=== PATIENT | male | born 1960 | race Caucasian/White ===

== ENCOUNTER 2024-10-08 15:23 | Outpatient (AMB) | payer BC, SELFPAY ==
--- NOTE | 2024-10-08 15:35 | HO.NEPHOV_ITS ---
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 He is not a diabetic. He has no H/O CAD, CVA, CHF, PAD, FRANKLIN, hypokalemia or hypercalcemia. He has no headache or visual disturbance. He has no orthostatic symptoms. He has no chest pain, palpitations, SOB, edema. He has no H/O drug use but has normal sodium diet. He monitors his BP at home and has been having labile blood pressure which was confirmed by RN in PCP's office. He is active and feels well. REPLACED BY [facility] Medical History (Updated 10/08/24 @ 16:02 by Chai Washburn MD) Obesity, class 1 Hyperlipidemia GE reflux Ortiz esophagus Hypertension Family History (Updated 10/08/24 @ 15:38 by Sigrid Armenta MA) Father Pancreatic cancer Social History (Updated 10/08/24 @ 15:38 by Sigrid Armenta MA) Alcohol intake: current Comment: Socially Patient Tobacco Use Status: Current someday Tobacco user Review of Systems Const All systems reviewed & are unremarkable except as noted in HPI and below Physical Exam Vital Signs: Last Vital Signs Pulse 79 10/08/24 15:42 BP 136/100 H 10/08/24 15:42 Pulse Ox 96 10/08/24 15:42 Oxygen Delivery Method Room Air 10/08/24 15:42 BMI result Body Mass Index 29.3 Const General: comfortable and no acute distress Orientation/consciousness: patient oriented x3 HEENT Head: Yes normocephalic Mouth: Normal oral and palatal mucosa present Eyes EOM: EOMs intact bilaterally Neck Neck: Yes supple Resp Auscultation: clear to auscultation bilaterally Cardio Jugular venous distension: no JVD Rate: regular rate GI Palpation (GI): Soft to palpation Auscultation: normal bowel sounds General: Yes no CVA tenderness Back/Spine/Pelvis Back: no CVA tenderness Skin General skin exam: no rashes or lesions noted Neuro General: patient oriented x3 and moves all extremities Extrem General: Yes no pedal edema Results Reviewed Nephrology Results: No Data to Display Assessment & Plan Assessment & Plan (1) Labile blood pressure: Code(s): R09.89 - Other specified symptoms and signs involving the circulatory and respiratory systems Category: Medical Plan Servando has been having labile BP for some time No H/O hypokalemia , renal dysfunction or uncontrolled thyroid disorders Low sodium diet and continued good physical activity 24 hour BPM today; May need to initiate BP medication based on data Discussed the etiologies of hypertension, investigations & management strategies Follow up given; Answered all questions Orders: Orders AMB 24 HR B/P Monitor PLACEMENT 10/08/24 R09.89 - Other specified symptoms and signs involving the circulatory and respiratory systems Coding Level of Care Code New Pt Level 4 (64170) Diagnoses Labile blood pressure R09.89
[2024-10-08 15:42] VITALS: BP 136/100; PULSE 79; O2SAT 96; BMI 29.3
== END 2024-10-08 16:18 | disposition home or self-care (01) ==
LOC: HO.HKAS 15:23
PROVIDERS: PCP Family Medicine; Visit Provider Internal Medicine Nephrology
DX: R09.89 Other specified symptoms and signs involving the circulatory and respiratory systems (principal)
CPT/HCPCS: 99204

== ENCOUNTER → 2024-10-08 15:23 | Outpatient (BNVA) | payer BC, SELFPAY | PROVIDERS: PCP Family Medicine; Visit Provider Internal Medicine Nephrology ==

== ENCOUNTER → 2024-10-09 15:30 | Outpatient (BNVA) | payer BC, SELFPAY | PROVIDERS: PCP Family Medicine; Visit Provider Internal Medicine Nephrology | DX: R09.89 Other specified symptoms and signs involving the circulatory and respiratory systems (principal) | CPT/HCPCS: 93786; 93788 ==

== ENCOUNTER 2024-10-11 10:58 | Outpatient (AMB) | payer BC, SELFPAY ==
[2024-10-11 11:23] VITALS: BP 128/80; PULSE 74; O2SAT 97; BMI 29.2
--- NOTE | 2024-10-11 11:23 | HO.NEPHOV_ITS ---
Vital Signs 10/11/24 11:23 Height 5 ft 7 in Weight 186 lb 4 oz BMI 29.2 BP 128/80 Blood Pressure Location Lt brachial Position Sitting Pulse 74 Pulse Source Pulse Oximeter Pulse Oximetry (%) 97 Oxygen Delivery Method Room Air Intake Visit Reasons: 24 Hr BP results Position Classifier Required: No Accompanied by: Self / Same As Patient Allergies No Known Allergies Allergy (Verified 10/11/24 11:35) Do you need a note to return to daycare/school/sports/work: No HPI Comments Details: Servando was seen in follow up for labile blood pressure. He is not a diabetic. He has no H/O CAD, CVA, CHF, PAD, FRANKLIN, hypokalemia or hypercalcemia. He has no headache or visual disturbance. He has no orthostatic symptoms. He has no chest pain, palpitations, SOB, edema. He has no H/O drug use but has normal sodium diet. He monitors his BP at home and has been having labile blood pressure which was confirmed by RN in PCP's office. He had a 24 hour BP monitor which showed 24 hour average of 127/86 mm of Hg with daytime average of 127/88 mm of Hg and night time average of 125/80 mm of Hg. He had spikes of high BP above goal but his average is pretty good. He is active and feels well. [facility] Medical History Obesity, class 1 Hyperlipidemia GE reflux Ortiz esophagus Hypertension Family History Father Pancreatic cancer Social History Alcohol intake: current Comment: Socially Patient Tobacco Use Status: Current someday Tobacco user Review of Systems Const All systems reviewed & are unremarkable except as noted in HPI and below Physical Exam Vital Signs: Last Vital Signs Pulse 74 10/11/24 11:23 BP 128/80 10/11/24 11:23 Pulse Ox 97 10/11/24 11:23 Oxygen Delivery Method Room Air 10/11/24 11:23 BMI result Body Mass Index 29.2 Const General: comfortable and no acute distress Orientation/consciousness: patient oriented x3 HEENT Head: Yes normocephalic Mouth: Normal oral and palatal mucosa present Eyes EOM: EOMs intact bilaterally Neck Neck: Yes supple Resp Auscultation: clear to auscultation bilaterally Cardio Jugular venous distension: no JVD Rate: regular rate GI Palpation (GI): Soft to palpation Auscultation: normal bowel sounds General: Yes no CVA tenderness Back/Spine/Pelvis Back: no CVA tenderness Skin General skin exam: no rashes or lesions noted Neuro General: patient oriented x3 and moves all extremities Extrem General: Yes no pedal edema Results Reviewed Nephrology Results: No Data to Display Assessment & Plan Assessment & Plan (1) Labile blood pressure: Code(s): R09.89 - Other specified symptoms and signs involving the circulatory and respiratory systems Category: Medical Plan Servando has been having labile BP for some time No H/O hypokalemia , renal dysfunction or uncontrolled thyroid disorders Low sodium diet and continued good physical activity He had a 24 hour BP monitor which showed 24 hour average of 127/86 mm of Hg with daytime average of 127/88 mm of Hg and night time average of 125/80 mm of Hg. He had spikes of high BP above goal but his average is pretty good. May need to initiate BP medication based on future data Discussed the etiologies of hypertension, investigations & management strategies Follow up given; Answered all questions Coding Level of Care Code Est Pt Level 4 (61058) Diagnoses Labile blood pressure R09.89
--- OUTSIDE RECORDS SUMMARY | 2024-10-11 12:05 | XMS_ITS | Clinical Summary ---
Author Organization [facility] [address] [facility] Address [address] [place] [address] Phone Care Team Providers Care Brand Manager Name Role Phone Donnie Mendez DO Primary Care Provider [phone] Medications omeprazole (PriLOSEC) [address] capsuleIndicatio ns:Gastroesophag eal reflux disease without esophagitis Take 1 capsule (20 mg total) by mouth 1 (one) time each day. 30 each 05/31/2024 05/31/20 Active Social History Tobacco Use Types Packs/Day Years Used Date Smoking Tobacco: Never Assessed Sex and Gender Information Value Date Recorded Sex Assigned at Not on file Legal Sex Male 4:38 PM EDT Gender Identity Not on file Sexual Orientation Not on file Plan of Treatment Health Maintenance Due Date Last Done Comments DTaP,Tdap,and Td Vaccines (1 - Tdap) 1979 Pneumococcal Vaccine: 50+ Ye ars (1 of 1 - PCV) 2010 Zoster Vaccines (1 of 2) 2010 COVID-19 Vaccine ( - 2023-2 5 season) 2024 Cholesterol Screening (Lipid Panel) 04/07/2024 Colorectal Cancer Screening: Colonoscopy 04/07/2024 Depression Screening 04/07/2024 HIV Screening 04/07/2024 Hepatitis C Screening 04/07/2024 Social Influencers of Health Screening 04/07/2024 Influenza Vaccine (Season Ended) 2025 RSV Immunization Adult Patie nts (1 - 1-dose 75+ series) 2035 HIB Vaccines Aged Out No longer eligi ble based on patient's age to complete this topic HPV Vaccines Aged Out No longer eligi ble based on patient's age to complete this topic Hepatitis A Vaccines Aged Out No long er eligible based on patient's age to complete this topic Hepatitis B Vaccines Aged Out No long er eligible based on patient's age to complete this topic IPV Vaccines Aged Out No longer eligi ble based on patient's age to complete this topic MMR Vaccines Aged Out No longer eligi ble based on patient's age to complete this topic Meningococcal ACWY Vaccine Aged Out N o longer eligible based on patient's age to complete this topic Meningococcal B Vaccine Aged Out No l onger eligible based on patient's age to complete this topic Pneumococcal Vaccine: Pediat rics (0 to 5 Years) and At-Risk Patients (6 to 64 Years) Aged Out No longer eligible b ased on patient's age to complete this topic RSV Immunization Patients Un arnold 20 months Aged Out No longer eligible b ased on patient's age to complete this topic Varicella Vaccines Aged Out No longer eligible based on patient's age to complete this topic Insurance [facility] Care Teams Brand Manager Relationship Specialty Start Date End Date Donnie Mendez DO [address], [place] PCP - General Family Medicine 05/30/24
== END 2024-10-11 11:52 | disposition home or self-care (01) ==
LOC: HO.HKA 10:59
PROVIDERS: PCP Family Medicine; Visit Provider Internal Medicine Nephrology
DX: R09.89 Other specified symptoms and signs involving the circulatory and respiratory systems (principal)
CPT/HCPCS: 99214

== ENCOUNTER 2025-04-10 09:47 | Outpatient (AMB) | payer MEDICARE, SELFPAY ==
--- NOTE | 2025-04-10 09:55 | HO.NEPHOV_ITS ---
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 He is not a diabetic. He has no H/O CAD, CVA, CHF, PAD, FRANKLIN, hypokalemia or hypercalcemia. He has no headache or visual disturbance. He has no orthostatic symptoms. He has no chest pain, palpitations, SOB, edema. He has no H/O drug use but has normal sodium diet. He monitors his BP at home and has been having labile blood pressure which was confirmed by RN in PCP's office. He had a 24 hour BP monitor which showed 24 hour average of 127/86 mm of Hg with daytime average of 127/88 mm of Hg and night time average of 125/80 mm of Hg. He had spikes of high BP above goal but his average is pretty good. He is active and feels well. COUNTS INCLUDE 234 BEDS AT [facility] Medical History Obesity, class 1 Hyperlipidemia GE reflux Ortiz esophagus Hypertension Family History Father Pancreatic cancer Social History Alcohol intake: current Comment: Socially Patient Tobacco Use Status: Current someday Tobacco user Review of Systems Const All systems reviewed & are unremarkable except as noted in HPI and below Physical Exam Const General: comfortable and no acute distress Orientation/consciousness: patient oriented x3 HEENT Head: Yes normocephalic Mouth: Normal oral and palatal mucosa present Eyes EOM: EOMs intact bilaterally Neck Neck: Yes supple Resp Auscultation: clear to auscultation bilaterally Cardio Jugular venous distension: no JVD Rate: regular rate GI Palpation (GI): Soft to palpation Auscultation: normal bowel sounds General: Yes no CVA tenderness Back/Spine/Pelvis Back: no CVA tenderness Skin General skin exam: no rashes or lesions noted Neuro General: patient oriented x3 and moves all extremities Extrem General: Yes no pedal edema Assessment & Plan Assessment & Plan (1) Labile blood pressure: Code(s): R09.89 - Other specified symptoms and signs involving the circulatory and respiratory systems Category: Medical Plan Servando has been having labile BP for some time No H/O hypokalemia , renal dysfunction or uncontrolled thyroid disorders Low sodium diet and continued good physical activity He had a 24 hour BP monitor which showed 24 hour average of 127/86 mm of Hg with daytime average of 127/88 mm of Hg and night time average of 125/80 mm of Hg. He had spikes of high BP above goal @ home . Started losartan 25 mg daily ; F/U labs ordered Discussed the etiologies of hypertension, investigations & management strategies Follow up given; Answered all questions Orders: Orders Electrolytes 3 Months R09.89 - Other specified symptoms and signs involving the circulatory and respiratory systems Blood Urea Nitrogen 3 Months R09.89 - Other specified symptoms and signs involving the circulatory and respiratory systems Creatinine 3 Months R09.89 - Other specified symptoms and signs involving the circulatory and respiratory systems Electrolytes 6 Weeks R09.89 - Other specified symptoms and signs involving the circulatory and respiratory systems Blood Urea Nitrogen 6 Weeks R09.89 - Other specified symptoms and signs involving the circulatory and respiratory systems Creatinine 6 Weeks R09.89 - Other specified symptoms and signs involving the circulatory and respiratory systems Medications: New losartan 25 mg PO DAILY 90 tabs 4RF Coding Level of Care Code Est Pt Level 4 (95094) Diagnoses Labile blood pressure R09.89
[2025-04-10 10:19] VITALS: BP 134/80; PULSE 80; O2SAT 96; BMI 29.3
--- OUTSIDE RECORDS SUMMARY | 2025-04-10 11:30 | XMS_ITS | Clinical Summary ---
Author Organization [facility] [address] [facility] Address [address] [place] [address] Phone Care Team Providers Care Trucker Hand Name Role Phone Donnie Mendez DO Primary Care Provider [phone] Medications omeprazole (PriLOSEC) [address] [place] ns:Gastroesophag eal reflux disease without esophagitis Take [...] Health Maintenance Due Date Last Done Comments Colorectal Cancer Screening: Colonoscopy 1960 DTaP,Tdap,and Td Vaccines (1 - Tdap) 1979 Pneumococcal Vaccine: 50+ Ye ars (1 of 1 - PCV) 2010 Zoster Vaccines (1 of 2) 2010 Abdominal Aortic Aneurysm (A AA) Screen 04/07/2024 Cholesterol Screening (Lipid Panel) 04/07/2024 Hepatitis C Screening 04/07/2024 Social Influencers of Health Screening 04/07/2024 Depression Screening 06/12/2024 COVID-19 Vaccine ( - 2023-2 5 season) 2025 Influenza Vaccine (#1) 2025 Falls Risk Assessment 2025 RSV Immunization Adult Patie nts (1 [...] patient's age to complete this topic [place] [address] [place] [id number] Care Teams Trucker Hand Relationship Specialty Start Date End Date Donnie Mendez DO [address] [place] [address] PCP - General Family Medicine 05/30/24
== END 2025-04-10 10:45 | disposition home or self-care (01) ==
LOC: HO.HKAS 09:48
PROVIDERS: PCP Family Medicine; Visit Provider Internal Medicine Nephrology
DX: R09.89 Other specified symptoms and signs involving the circulatory and respiratory systems (principal)
CPT/HCPCS: 99214

== ENCOUNTER → 2025-04-10 09:47 | Outpatient (BNVA) | payer MEDICARE, SELFPAY | PROVIDERS: PCP Family Medicine; Visit Provider Internal Medicine Nephrology | DX: R09.89 Other specified symptoms and signs involving the circulatory and respiratory systems (principal) | CPT/HCPCS: 99212 ==